=== PATIENT | male | born 1960 | race Caucasian/White ===

== ENCOUNTER 2019-03-19 06:34 | Day surgery (SDC) | payer BC ==
[~2019-03-19 06:34] MED LIST: Lactated Ringers 1,000 ML IV SCH
[2019-03-19] MEDS ORDERED: Propofol 200 MG/20 ML SDV ONE (08:18)
[2019-03-19] MEDS ORDERED: fentaNYL 100 MCG/2 ML SDV ONE (08:19)
--- NOTE | 2019-03-19 10:13 | OR ---
PRE-OPERATIVE DIAGNOSIS: Screening colonoscopy. The patient denies any gastrointestinal symptoms nor any family history of colon cancer. POST-OPERATIVE DIAGNOSIS: Normal colon and distal ileum. PROCEDURE: Colonoscopy. SURGEON: Timur Holloway M.D. ANESTHESIA: Monitored anesthesia care. BOWEL PREP: Good. Antelmo is a 58-year-old male, who was brought to the endoscopy suite after discussing risks and benefits of the procedure. Informed consent was obtained for conscious sedation and colonoscopy with or without biopsy and/or polypectomy. We also discussed possibility of missed lesions. Pre-procedure exam was unremarkable. IV, oxygen, and monitors were placed. The patient was placed in the left lateral decubitus position. Sedation was administered and a digital rectal exam was performed which was unremarkable. Colonoscope was passed into the rectum and slowly advanced all the way to the cecum. Cecum was viewed and photographed. Ileocecal valve was intubated and distal ileum was normal in appearance. The colonoscope was slowly withdrawn and the mucosa was closed observed in a direct circumferential manner. The ascending colon was unremarkable. The transverse colon was unremarkable. The descending colon was unremarkable. The sigmoid colon was unremarkable. Retroflexion was performed and rectal mucosa was unremarkable. Scope was removed. The patient tolerated the procedure well. The patient was monitored until that baseline status. Discharge instructions were reviewed and the patient was discharged in good condition. COMPLICATIONS: None. TOTAL TIME: 13 minutes. ESTIMATED BLOOD LOSS: None. RECOMMENDATIONS/FOLLOW-UP: Recommend repeat colonoscopy in 10 years barring any interim change in personal symptoms or family history. I would like to kindly thank Rehan Joyner for this referral. DMB: 03/19/2019 09:43:15 MODL: 03/19/2019 10:07:58 /[id number]
== END 2019-03-19 11:40 | disposition home or self-care (01) ==
LOC: VM.SDS 06:34
PROVIDERS: ATTEND Family Medicine
DX: Z12.11 Encounter for screening for malignant neoplasm of colon (principal); N52.9 Male erectile dysfunction, unspecified; H61.23 Impacted cerumen, bilateral; E78.1 Pure hyperglyceridemia
CPT/HCPCS: 45378; J2704; J3010; J7120